=== PATIENT | male | born 1975 | race Caucasian/White ===

== ENCOUNTER 2023-09-05 01:10 | Inpatient (IN) | payer OTHER ==
[~2023-09-05] VITALS: Ht 172.7 cm; Wt 77.7 kg
[2023-09-05] VITALS (26 sets, daily range): BP systolic 117–159; BP diastolic 60–91
[2023-09-05] MEDS ORDERED: Ceftriaxone Sodium 1 GM/10 ML SYR IV ONE (01:15)
[2023-09-05] MEDS ORDERED: SODIUM CHLORIDE 0.9% 1,000 ML IV SCH (01:15)
[2023-09-05 02:17] LABS: MEAN CELL VOLUME 93.6 fl (80.0-94.0); MEAN CORPUSCULAR HGB 29.4 pg (27.0-31.0); MEAN CORPUSCULAR HGB CONC 31.4 g/dl (33.0-37.0); MEAN PLATELET VOLUME 11.2 fl (9.6-12.3); PLATELET COUNT AUTOMATED 413 10*3/uL (130-400); RED BLOOD COUNT 2.35 10*6/uL (4.50-5.90); RED CELL DISTRI WIDTH 18.2 % (0-14.5); WHITE BLOOD COUNT 12.1 10*3/uL (4.8-10.8)
[2023-09-05 02:17] LABS: ABG BASE EXCESS 9.4 mmol/L (-2.0-2.0); ARTERIAL BLOOD GAS PH 7.481 (7.35-7.45)
[2023-09-05 02:21] LABS: MANUAL DIFF REFLEX YES
[2023-09-05] MEDS ORDERED: AMLODIPINE BESY10 MG PEG (02:23)
[2023-09-05] MEDS ORDERED: ASPIRIN CHEWABL81 MG PEG (02:23)
[2023-09-05] MEDS ORDERED: ATORVALIQ20 MG/5 ML PEG (02:24)
[2023-09-05] MEDS ORDERED: BUMETANIDE0.5 MG PEG (02:24)
[2023-09-05] MEDS ORDERED: GOOD SENSE ACID20 MG PEG (02:25)
[2023-09-05] MEDS ORDERED: COREG25 MG PEG (02:25)
[2023-09-05] MEDS ORDERED: GLYCOPYRROL PEG (02:26)
[2023-09-05 02:27] LABS: ACT PARTIAL THROMBO TIME 26.9 SECONDS (20.0-32.1)
[2023-09-05] MEDS ORDERED: DAILY VITE1 EACH PEG (02:27)
[2023-09-05] MEDS ORDERED: MACROBID100 M1 PEG (02:27)
[2023-09-05] MEDS ORDERED: KEPPRA1000 MG PEG (02:27)
[2023-09-05] MEDS ORDERED: PLAVIX75 M1 PEG (02:28)
[2023-09-05] MEDS ORDERED: VALPROIC ACI50 MG/ML PEG (02:28)
[2023-09-05] MEDS ORDERED: BISACODYL10 MG R (02:30)
[2023-09-05] MEDS ORDERED: CHLORHEXIDINE473 M1 PO (02:30)
[2023-09-05] MEDS ORDERED: COLACE100 MG PEG (02:31)
[2023-09-05] MEDS ORDERED: MILK OF MA400 MG/53 PEG (02:32)
[2023-09-05] MEDS ORDERED: Ipratropium Brom3 ML INH (02:32)
[2023-09-05] MEDS ORDERED: MIRALAX17 GM PEG (02:33)
[2023-09-05 02:41] LABS: MICROCYTOSIS SLIGHT; PLATELET SUFFICIENCY NORMAL (NORMAL); TOTAL CELLS COUNTED 100 #CELLS
[2023-09-05 02:44] LABS: ALKALINE PHOSPHATASE 316 U/L (46-116); BUN 67 mg/dl (9-23); CHLORIDE 101 mmol/L (98-107); POTASSIUM 3.8 mmol/L (3.4-5.1); SGPT/ALT 169 U/L (5-49); TOTAL PROTEIN 6.5 gm/dL (6.0-8.0)
[2023-09-05] MEDS ORDERED: AZITHROMYCIN 250 MG TAB PO ONE (02:45)
[2023-09-05] MEDS ORDERED: Pantoprazole Sodium 40 MG in SODIUM CHLORIDE 0.9% 50 ML IV SCH ×2 (02:50→07:30)
[2023-09-05] MEDS ORDERED: Pantoprazole Sodium 80 MG,IV 1 EA in SYRINGE INFUSION 20 ML IV ONE (02:50)
[2023-09-05] MEDS ORDERED: AZITHROMYCIN 250 ML IV ONE (02:55)
[2023-09-05] MEDS ORDERED: PANTOPRAZOLE IV ONE (03:33)
[2023-09-05] MEDS ORDERED: SODIUM CHLORIDE 0.9% 50 ML IV ONE (03:34)
[2023-09-05 04:09] LABS: BILIRUBIN Negative (Negative); BLOOD 3+ (Negative); CLARITY Cloudy (Clear); COLOR Yellow (Yellow); GLUCOSE 1+ (Negative); KETONE Negative (Negative); LEUKO ESTERASE 3+ (Negative); NITRITE Positive (Negative); SPECIFIC GRAVITY 1.015 (1.001-1.030)
[2023-09-05 04:31] LABS: PH >= 9.0 (4.5-8.0); TRIP PHOS CRYSTALS 4+
[2023-09-05 04:32] LABS: RBC 41-50 rbc/hpf (0-2); WBC 21-30 wbc/hpf (0-5)
[2023-09-05 04:33] LABS: BACTERIA 1+
[2023-09-05] MEDS ORDERED: SODIUM CHLORIDE 0.9% 500 ML IV ONE ×2 (05:18→11:02)
[2023-09-05] MEDS ORDERED: Ondansetron Hydrochloride 4 MG/2 ML VIAL IV PRN (08:10)
[2023-09-05] MEDS ORDERED: TEMAZEPAM 15 MG CAP PO PRN (08:10)
[2023-09-05] MEDS ORDERED: Magnesium Hydroxide 30 ML UDC PO PRN (08:10)
[2023-09-05] MEDS ORDERED: ACETAMINOPHEN 650 MG SUPP R PRN (08:10)
[2023-09-05] MEDS ORDERED: ACETAMINOPHEN 325 MG TAB PO PRN (08:10)
[2023-09-05] MEDS ORDERED: BISACODYL 10 MG SUPP R PRN (08:10)
[2023-09-05] MEDS ORDERED: BISACODYL 5 MG TAB PO PRN (08:10)
[2023-09-05] MEDS ORDERED: ACETAMINOPHEN 325 MG TAB PEG PRN (09:37)
[2023-09-05] MEDS ORDERED: Magnesium Hydroxide 30 ML UDC PEG PRN (09:37)
[2023-09-05] MEDS ORDERED: Enoxaparin Sodium 40 MG/0.4 ML SYR SC SCH (10:00)
[2023-09-05] MEDS ORDERED: Ceftriaxone Sodium 1 GM in SYRINGE INFUSION 10 ML IV SCH (22:00)
[2023-09-06] VITALS: BP 146/84
[2023-09-06 04:00] VITALS: BP 152/81
[2023-09-06 05:46] LABS: ALKALINE PHOSPHATASE 295 U/L (46-116); CHLORIDE 106 mmol/L (98-107); CHOLESTEROL 134 mg/dL (<200); FREE T4 1.64 ng/dl (0.89-1.76); POTASSIUM 3.8 mmol/L (3.4-5.1); SGPT/ALT 144 U/L (5-49); TOTAL PROTEIN 6.6 gm/dL (6.0-8.0); TRIGLYCERIDES 200 mg/dl (<150)
[2023-09-06] MEDS ORDERED: Pantoprazole Sodium 40 MG TAB PO SCH (06:00)
[2023-09-06] MEDS ORDERED: AZITHROMYCIN 250 ML IV SCH (06:00)
[2023-09-06] MEDS ORDERED: Pantoprazole Sodium 40 MG VIAL IV SCH (06:00)
[2023-09-06 06:14] LABS: BUN 49 mg/dl (9-23); LDL CHOLESTEROL 85 mg/dL (9-159)
[2023-09-06 06:26] LABS: ACT PARTIAL THROMBO TIME 27.2 SECONDS (20.0-32.1)
[2023-09-06 06:29] LABS: BASO % 0.3 % (0.0-1.0); EOS # 0.4 10*3/uL (0.0-0.4); EOS % 2.8 % (1.0-4.0); HEMATOCRIT 29.2 % (42.0-52.0); LYMPH # 1.1 10*3/uL (1.3-4.4); LYMPH % 8.6 % (27.0-41.0); MEAN CELL VOLUME 93.3 fl (80.0-94.0); MEAN CORPUSCULAR HGB 29.4 pg (27.0-31.0); MEAN CORPUSCULAR HGB CONC 31.5 g/dl (33.0-37.0); MEAN PLATELET VOLUME 11.2 fl (9.6-12.3); MONO # 1.3 10*3/uL (0.1-1.0); NEUT # 10.3 10*3/uL (2.3-7.9); NEUT % 77.5 % (47.0-73.0); PLATELET COUNT AUTOMATED 468 10*3/uL (130-400); RED BLOOD COUNT 3.13 10*6/uL (4.50-5.90); RED CELL DISTRI WIDTH 17.8 % (0-14.5); WHITE BLOOD COUNT 13.3 10*3/uL (4.8-10.8)
[2023-09-06 08:00] VITALS: BP 140/94; BP 150/91
[2023-09-06 12:00] VITALS: BP 143/89
[2023-09-06] MEDS ORDERED: VANCOMYCIN/WATER FOR INJ (PEG) 250 ML IV SCH (14:00)
[2023-09-06 17:00] VITALS: BP 137/81
[2023-09-06] MEDS ORDERED: FOAM BANDAGE 5X5 T ONE (18:00)
[2023-09-06] MEDS ORDERED: LEPTOSPERMUM HONEY 4 X 5 INCH WOUND DRESSING T ONE (18:01)
[2023-09-06] MEDS ORDERED: HEEL PROTECTOR DEVICE ONE (18:01)
[2023-09-06] MEDS ORDERED: Polyethylene Glycol 3350 17 GM PACKET PEG PRN (18:05)
[2023-09-06 20:00] VITALS: BP 116/65
[2023-09-06] MEDS ORDERED: ATORVASTATIN CALCIUM 20 MG TAB PEG SCH (22:00)
[2023-09-06] MEDS ORDERED: LEVETIRACETAM 500 MG/5 ML UDC PEG SCH (22:00)
[2023-09-06] MEDS ORDERED: GLYCOPYRROLATE 1 MG TAB PEG SCH (22:00)
[2023-09-06] MEDS ORDERED: VALPROIC ACID 250 MG/5 ML UDC PEG SCH (22:00)
[2023-09-06] MEDS ORDERED: Clopidogrel Hydrogen Sulfate 75 MG TAB PEG SCH (22:00)
[2023-09-06] MEDS ORDERED: AQUAPHOR OINTMENT Base 50 GM TUBE T SCH (22:00)
[2023-09-06] MEDS ORDERED: CARVEDILOL 25 MG TAB PEG SCH (22:00)
[2023-09-06] MEDS ORDERED: FAMOTIDINE 20 MG TAB PEG SCH (22:00)
[2023-09-07] VITALS: BP 99/58
[2023-09-07 04:00] VITALS: BP 102/68
[2023-09-07 05:58] LABS: ALKALINE PHOSPHATASE 228 U/L (46-116); BUN 51 mg/dl (9-23); CHLORIDE 109 mmol/L (98-107); POTASSIUM 3.5 mmol/L (3.4-5.1); SGPT/ALT 107 U/L (5-49); TOTAL PROTEIN 5.8 gm/dL (6.0-8.0)
[2023-09-07 06:17] LABS: BASO % 0.2 % (0.0-1.0); EOS # 0.4 10*3/uL (0.0-0.4); EOS % 2.8 % (1.0-4.0); HEMATOCRIT 25.8 % (42.0-52.0); LYMPH # 1.5 10*3/uL (1.3-4.4); LYMPH % 11.8 % (27.0-41.0); MEAN CELL VOLUME 96.3 fl (80.0-94.0); MEAN CORPUSCULAR HGB 29.9 pg (27.0-31.0); MEAN PLATELET VOLUME 11.7 fl (9.6-12.3); MONO # 0.9 10*3/uL (0.1-1.0); MONO % 6.7 % (3.0-9.0); NEUT # 9.9 10*3/uL (2.3-7.9); NEUT % 77.6 % (47.0-73.0); PLATELET COUNT AUTOMATED 383 10*3/uL (130-400); RED BLOOD COUNT 2.68 10*6/uL (4.50-5.90); RED CELL DISTRI WIDTH 17.7 % (0-14.5); WHITE BLOOD COUNT 12.8 10*3/uL (4.8-10.8)
[2023-09-07 07:38] LABS: ABG BASE EXCESS 4.9 mmol/L (-2.0-2.0); ARTERIAL BLOOD GAS PH 7.485 (7.35-7.45)
[2023-09-07 08:00] VITALS: BP 111/74
[2023-09-07] MEDS ORDERED: ASPIRIN, CHEWABLE 81 MG TAB PEG SCH (10:00)
[2023-09-07] MEDS ORDERED: Chlorhexidine Gluconate 15 ML MOUTHWASH T SCH (10:00)
[2023-09-07] MEDS ORDERED: MULTIVITAMIN 1 TAB TAB PO SCH (10:00)
[2023-09-07] MEDS ORDERED: amLODIPine besylate 10 MG TAB PEG SCH (10:00)
[2023-09-07] MEDS ORDERED: DOCUSATE SODIUM 100 MG/10 ML UDC PO SCH (10:00)
[2023-09-07 12:00] VITALS: BP 131/67
[2023-09-07] MEDS ORDERED: FERROUS SULFATE 325 MG TAB PO SCH (14:20)
[2023-09-07] MEDS ORDERED: Vancomycin Hydrochloride 1,000 MG in SODIUM CHLORIDE 0.9% 250 ML IV SCH (15:00)
[2023-09-07 16:00] VITALS: BP 155/85
[2023-09-07 20:00] VITALS: BP 136/87
[2023-09-07] MEDS ORDERED: LEVETIRACETAM 500 MG/5 ML UDC PEG SCH (22:00)
[2023-09-08] VITALS: BP 121/65
[2023-09-08 04:00] VITALS: BP 120/71
[2023-09-08 04:35] LABS: BASO % 0.2 % (0.0-1.0); EOS # 0.4 10*3/uL (0.0-0.4); EOS % 3.3 % (1.0-4.0); HEMATOCRIT 27.7 % (42.0-52.0); LYMPH # 1.2 10*3/uL (1.3-4.4); LYMPH % 10.7 % (27.0-41.0); MEAN CELL VOLUME 93.3 fl (80.0-94.0); MEAN CORPUSCULAR HGB 29.6 pg (27.0-31.0); MEAN CORPUSCULAR HGB CONC 31.8 g/dl (33.0-37.0); MEAN PLATELET VOLUME 11.4 fl (9.6-12.3); MONO # 0.9 10*3/uL (0.1-1.0); NEUT # 8.6 10*3/uL (2.3-7.9); NEUT % 77.3 % (47.0-73.0); PLATELET COUNT AUTOMATED 370 10*3/uL (130-400); RED BLOOD COUNT 2.97 10*6/uL (4.50-5.90); RED CELL DISTRI WIDTH 17.4 % (0-14.5); WHITE BLOOD COUNT 11.1 10*3/uL (4.8-10.8)
[2023-09-08 04:57] LABS: ALKALINE PHOSPHATASE 206 U/L (46-116); CHLORIDE 109 mmol/L (98-107); POTASSIUM 3.5 mmol/L (3.4-5.1); SGPT/ALT 89 U/L (5-49); TOTAL PROTEIN 5.9 gm/dL (6.0-8.0)
[2023-09-08 04:58] LABS: BUN 35 mg/dl (9-23)
[2023-09-08 07:57] VITALS: BP 108/74
[2023-09-08] MEDS ORDERED: LORazepam 2 MG/ML VIAL IV ONE ×2 (10:45→15:50)
[2023-09-08 12:00] VITALS: BP 140/85
[2023-09-08] MEDS ORDERED: GADOTERATE MEGLUMINE 10 MMOL/20 ML VIAL IV ONE (14:49)
[2023-09-08 16:00] VITALS: BP 166/99
[2023-09-08] MEDS ORDERED: LEVETIRACE500 MG/5 M PEG (16:16)
[2023-09-08] MEDS ORDERED: DEPAKENE S250 MG/5 M PEG (16:16)
[2023-09-08] MEDS ORDERED: MASON NATURAL325 MG PO (16:16)
[2023-09-08] MEDS ORDERED: PREMIERPRO RX ME1 GM IV (16:16)
[2023-09-08] MEDS ORDERED: Meropenem 1 GM in SODIUM CHLORIDE 0.9% 100 ML IV SCH (22:00)
== END 2023-09-08 18:30 | disposition short-term general hospital (02) | DRG 871 ==
LOC: ED 01:10 → EDHOLD 07:44 → ICCU 07:44
PROVIDERS: Internal Medicine; Student in an Organized Health Care Education/Training Program; ADMIT Family Medicine; ATTEND Family Medicine
PROC: B54NZZA Ultrasonography of Left Upper Extremity Veins, Guidance (ICD-10-PCS; 2023-09-05)
PROC: B54BZZA Ultrasonography of Right Lower Extremity Veins, Guidance (ICD-10-PCS; 2023-09-05)
PROC: 30233N1 Transfusion of Nonautologous Red Blood Cells into Peripheral Vein, Percutaneous Approach (ICD-10-PCS; 2023-09-05)
PROC: 06HY33Z Insertion of Infusion Device into Lower Vein, Percutaneous Approach (ICD-10-PCS; principal; 2023-09-07)
PROC: 05HC33Z Insertion of Infusion Device into Left Basilic Vein, Percutaneous Approach (ICD-10-PCS; 2023-09-07)
DX: A41.9 Sepsis, unspecified organism (principal); J69.0 Pneumonitis due to inhalation of food and vomit; L89.894 Pressure ulcer of other site, stage 4; J96.21 Acute and chronic respiratory failure with hypoxia; N30.01 Acute cystitis with hematuria; K92.2 Gastrointestinal hemorrhage, unspecified; N17.9 Acute kidney failure, unspecified; G93.1 Anoxic brain damage, not elsewhere classified; Z66 Do not resuscitate; I25.10 Atherosclerotic heart disease of native coronary artery without angina pectoris; Z93.0 Tracheostomy status; Z51.5 Encounter for palliative care; E88.09 Other disorders of plasma-protein metabolism, not elsewhere classified; R73.9 Hyperglycemia, unspecified; R74.01 Elevation of levels of liver transaminase levels; D63.8 Anemia in other chronic diseases classified elsewhere; R56.9 Unspecified convulsions; L89.892 Pressure ulcer of other site, stage 2; L89.626 Pressure-induced deep tissue damage of left heel; Z83.3 Family history of diabetes mellitus; Z82.49 Family history of ischemic heart disease and other diseases of the circulatory system; Z88.0 Allergy status to penicillin; Z91.013 Allergy to seafood; Z88.5 Allergy status to narcotic agent; Z79.82 Long term (current) use of aspirin; Z79.899 Other long term (current) drug therapy

== ENCOUNTER 2023-12-23 14:10 | Inpatient (IN) | payer OTHER ==
[~2023-12-23] VITALS: Ht 167.6 cm; Wt 70.3 kg
[~2023-12-23 14:10] MED LIST: AMLODIPINE BESY10 MG PEG; AMLODIPINE BESYL5 MG PEG; ASPIRIN CHEWABL81 MG PEG; ATORVALIQ20 MG/5 ML PEG; BISACODYL10 MG R; BUMETANIDE0.5 MG PEG; CEFEPIME2 GM/100 M IV; CHLORHEXIDINE473 M1 PO; COLACE100 MG PEG; COREG25 MG PEG; DAILY VITE1 EACH PEG; DEPAKENE S250 MG/5 M PEG; FERROUS SU220 MG/52 PEG; FLEET ENEMA EX230 M1 R; GLYCOPYRROL PEG; GOOD SENSE ACID20 MG PEG; Ipratropium Brom3 ML INH; KEPPRA1000 MG PEG; LEVETIRACE500 MG/5 M PEG; MACROBID100 M1 PEG; MASON NATURAL325 MG PO; MILK OF MA400 MG/53 PEG; MIRALAX17 GM PEG; PLAVIX75 M1 PEG; PREMIERPRO RX ME1 GM IV; VALPROIC A500 MG/10 PEG; VALPROIC ACI50 MG/ML PEG
[2023-12-23 14:16] VITALS: BP 126/84
[2023-12-23] MEDS ORDERED: SODIUM CHLORIDE 0.9% 1,000 ML IV ONE ×3 (14:25)
[2023-12-23 14:51] LABS: BASO % 0.5 % (0.0-1.0); EOS # 0.9 10*3/uL (0.0-0.4); HEMATOCRIT 32.3 % (42.0-52.0); MEAN CELL VOLUME 101.3 fl (80.0-94.0); MEAN CORPUSCULAR HGB 32.6 pg (27.0-31.0); MEAN CORPUSCULAR HGB CONC 32.2 g/dl (33.0-37.0); MEAN PLATELET VOLUME 10.3 fl (9.6-12.3); MONO # 0.8 10*3/uL (0.1-1.0); MONO % 9.2 % (3.0-9.0); NEUT # 5.4 10*3/uL (2.3-7.9); NEUT % 62.3 % (47.0-73.0); PLATELET COUNT AUTOMATED 218 10*3/uL (130-400); RED BLOOD COUNT 3.19 10*6/uL (4.50-5.90); RED CELL DISTRI WIDTH 13.3 % (0-14.5); WHITE BLOOD COUNT 8.7 10*3/uL (4.8-10.8)
[2023-12-23 15:02] LABS: BILIRUBIN Negative (Negative); BLOOD 1+ (Negative); CLARITY Turbid (Clear); COLOR Yellow (Yellow); GLUCOSE Negative (Negative); KETONE Negative (Negative); LEUKO ESTERASE 3+ (Negative); NITRITE Negative (Negative); PH 7.5 (4.5-8.0)
[2023-12-23 15:09] LABS: BACTERIA 2+; WBC TNTC wbc/hpf (0-5)
[2023-12-23 15:12] LABS: BUN 32 mg/dl (9-23); CHLORIDE 97 mmol/L (98-107); POTASSIUM 3.5 mmol/L (3.4-5.1)
[2023-12-23] MEDS ORDERED: AZITHROMYCIN 250 ML IV ONE (15:30)
[2023-12-23] MEDS ORDERED: Ceftriaxone Sodium 1 GM/10 ML SYR IV ONE (15:30)
[2023-12-23 16:08] LABS: ABG O2 SATURATION 96.1 % (94.0-98.0); ARTERIAL BLOOD GAS PH 7.497 (7.350-7.450); ARTERIAL BLOOD GAS PO2 76.2 mmHg (83.0-108.0)
[2023-12-23 16:10] LABS: ABG BASE EXCESS 9.4 mmol/L (-2.0-3.0)
[2023-12-23] MEDS ORDERED: BUMETANIDE1 MG PEG (16:16)
[2023-12-23] MEDS ORDERED: KEPPRA1000 MG PEG ×2 (16:18→16:19)
[2023-12-23 18:00] VITALS: BP 150/95
[2023-12-23] MEDS ORDERED: CEFEPIME HCL IN DEXTROSE 5 % 50 ML IV SCH (18:00)
[2023-12-23 20:00] VITALS: BP 109/50
[2023-12-23] MEDS ORDERED: DEPAKENE S250 MG/5 M PEG (23:39)
[2023-12-24] VITALS: BP 136/39; BP 138/87
[2023-12-24] MEDS ORDERED: FOAM BANDAGE 1 EACH BANDAGE T ONE (05:22)
[2023-12-24] MEDS ORDERED: ADHESIVE BANDAGE 1 EACH BANDAGE T ONE (05:26)
[2023-12-24] MEDS ORDERED: VALPROIC ACID 250 MG/5 ML UDC PEG SCH (06:00)
[2023-12-24 08:00] VITALS: BP 154/86
[2023-12-24 08:12] LABS: BASO % 0.4 % (0.0-1.0); EOS # 0.7 10*3/uL (0.0-0.4); EOS % 8.2 % (1.0-4.0); HEMATOCRIT 30.3 % (42.0-52.0); MEAN CORPUSCULAR HGB 32.7 pg (27.0-31.0); MEAN PLATELET VOLUME 10.3 fl (9.6-12.3); MONO # 0.8 10*3/uL (0.1-1.0); MONO % 9.2 % (3.0-9.0); NEUT # 6.1 10*3/uL (2.3-7.9); PLATELET COUNT AUTOMATED 192 10*3/uL (130-400); RED BLOOD COUNT 2.97 10*6/uL (4.50-5.90); RED CELL DISTRI WIDTH 13.3 % (0-14.5); WHITE BLOOD COUNT 9.1 10*3/uL (4.8-10.8)
[2023-12-24] MEDS ORDERED: LEVETIRACETAM 500 MG TAB PO SCH (09:00)
[2023-12-24 09:05] LABS: ALKALINE PHOSPHATASE 91 U/L (46-116); BUN 27 mg/dl (9-23); CHLORIDE 101 mmol/L (98-107); POTASSIUM 3.3 mmol/L (3.4-5.1); TOTAL PROTEIN 6.6 gm/dL (6.0-8.0)
[2023-12-24 09:06] LABS: SGPT/ALT < 7 U/L (5-49)
[2023-12-24] MEDS ORDERED: BUMETANIDE 1 MG TAB PEG SCH (10:00)
[2023-12-24] MEDS ORDERED: Enoxaparin Sodium 40 MG/0.4 ML SYR SC SCH (10:00)
[2023-12-24] MEDS ORDERED: Albuterol Sulf/Ipratropium 3 ML VIAL NEB SCH (10:00)
[2023-12-24] MEDS ORDERED: ASPIRIN, CHEWABLE 81 MG TAB PEG SCH (10:00)
[2023-12-24 12:00] VITALS: BP 155/96
[2023-12-24] MEDS ORDERED: CEFEPIME HCL IN DEXTROSE 5 % 50 ML IV SCH (12:00)
[2023-12-24 16:00] VITALS: BP 141/90
[2023-12-24] MEDS ORDERED: FOAM BANDAGE HEEL T ONE (19:44)
[2023-12-24 20:00] VITALS: BP 128/67
[2023-12-24] MEDS ORDERED: LEVETIRACETAM 500 MG/5 ML UDC PO SCH (22:00)
[2023-12-24] MEDS ORDERED: Clopidogrel Hydrogen Sulfate 75 MG TAB PEG SCH (22:00)
[2023-12-25] VITALS (7 sets, daily range): BP systolic 87–182; BP diastolic 48–115
[2023-12-25 06:29] LABS: BASO # 0.1 10*3/uL (0.0-0.1); BASO % 0.7 % (0.0-1.0); EOS # 0.9 10*3/uL (0.0-0.4); EOS % 12.7 % (1.0-4.0); HEMATOCRIT 32.8 % (42.0-52.0); MEAN CELL VOLUME 101.5 fl (80.0-94.0); MEAN CORPUSCULAR HGB 32.8 pg (27.0-31.0); MEAN CORPUSCULAR HGB CONC 32.3 g/dl (33.0-37.0); MEAN PLATELET VOLUME 10.9 fl (9.6-12.3); MONO # 0.6 10*3/uL (0.1-1.0); MONO % 8.7 % (3.0-9.0); NEUT # 4.2 10*3/uL (2.3-7.9); NEUT % 61.9 % (47.0-73.0); PLATELET COUNT AUTOMATED 201 10*3/uL (130-400); RED BLOOD COUNT 3.23 10*6/uL (4.50-5.90); RED CELL DISTRI WIDTH 13.3 % (0-14.5); WHITE BLOOD COUNT 6.8 10*3/uL (4.8-10.8)
[2023-12-25 06:37] LABS: BUN 24 mg/dl (9-23); CHLORIDE 101 mmol/L (98-107); POTASSIUM 3.4 mmol/L (3.4-5.1)
[2023-12-25] MEDS ORDERED: Albuterol Sulf/Ipratropium 3 ML VIAL NEB ONE (12:55)
[2023-12-25] MEDS ORDERED: Midazolam Hydrochloride 2 MG/2 ML VIAL ONE (13:02)
[2023-12-25] MEDS ORDERED: LISINOPRIL 10 MG TAB PEG SCH (17:35)
[2023-12-26 03:50] VITALS: BP 139/96
[2023-12-26 06:13] LABS: BASO % 0.3 % (0.0-1.0); BUN 26 mg/dl (9-23); CHLORIDE 98 mmol/L (98-107); EOS # 0.6 10*3/uL (0.0-0.4); EOS % 4.8 % (1.0-4.0); HEMATOCRIT 32.5 % (42.0-52.0); MEAN CORPUSCULAR HGB 32.9 pg (27.0-31.0); MEAN CORPUSCULAR HGB CONC 32.9 g/dl (33.0-37.0); MEAN PLATELET VOLUME 11.1 fl (9.6-12.3); MONO # 1.1 10*3/uL (0.1-1.0); MONO % 9.2 % (3.0-9.0); NEUT # 9.1 10*3/uL (2.3-7.9); PLATELET COUNT AUTOMATED 214 10*3/uL (130-400); POTASSIUM 3.5 mmol/L (3.4-5.1); RED BLOOD COUNT 3.25 10*6/uL (4.50-5.90); RED CELL DISTRI WIDTH 13.3 % (0-14.5); WHITE BLOOD COUNT 11.8 10*3/uL (4.8-10.8)
[2023-12-26 08:00] VITALS: BP 126/62
[2023-12-26 12:00] VITALS: BP 103/66
[2023-12-26] MEDS ORDERED: AMLODIPINE BESYL5 MG PO (13:36)
[2023-12-26 16:00] VITALS: BP 105/72
[2023-12-26 20:00] VITALS: BP 95/72
[2023-12-27] VITALS: BP 99/67
[2023-12-27 04:59] LABS: BUN 23 mg/dl (9-23); CHLORIDE 98 mmol/L (98-107); POTASSIUM 4.4 mmol/L (3.4-5.1)
[2023-12-27 06:16] LABS: BASO % 0.5 % (0.0-1.0); EOS # 0.8 10*3/uL (0.0-0.4); EOS % 10.7 % (1.0-4.0); HEMATOCRIT 34.3 % (42.0-52.0); MEAN CORPUSCULAR HGB 32.7 pg (27.0-31.0); MEAN CORPUSCULAR HGB CONC 31.2 g/dl (33.0-37.0); MEAN PLATELET VOLUME 11.3 fl (9.6-12.3); MONO % 12.1 % (3.0-9.0); NEUT # 4.6 10*3/uL (2.3-7.9); NEUT % 58.5 % (47.0-73.0); PLATELET COUNT AUTOMATED 170 10*3/uL (130-400); RED BLOOD COUNT 3.27 10*6/uL (4.50-5.90); RED CELL DISTRI WIDTH 13.4 % (0-14.5); WHITE BLOOD COUNT 7.8 10*3/uL (4.8-10.8)
[2023-12-27 06:49] LABS: MEAN CELL VOLUME 104.9 fl (80.0-94.0)
[2023-12-27 08:00] VITALS: BP 120/73
[2023-12-27 12:00] VITALS: BP 105/68
[2023-12-27 16:00] VITALS: BP 93/75
[2023-12-27 20:00] VITALS: BP 99/55
[2023-12-28] VITALS: BP 104/63
[2023-12-28 06:28] LABS: BUN 28 mg/dl (9-23); CHLORIDE 97 mmol/L (98-107); POTASSIUM 4.1 mmol/L (3.4-5.1)
[2023-12-28 06:54] LABS: BASO % 0.6 % (0.0-1.0); EOS # 0.8 10*3/uL (0.0-0.4); HEMATOCRIT 32.1 % (42.0-52.0); MEAN CELL VOLUME 102.6 fl (80.0-94.0); MEAN CORPUSCULAR HGB 33.2 pg (27.0-31.0); MEAN CORPUSCULAR HGB CONC 32.4 g/dl (33.0-37.0); MEAN PLATELET VOLUME 11.2 fl (9.6-12.3); MONO # 0.6 10*3/uL (0.1-1.0); MONO % 9.5 % (3.0-9.0); NEUT # 3.8 10*3/uL (2.3-7.9); NEUT % 58.5 % (47.0-73.0); PLATELET COUNT AUTOMATED 187 10*3/uL (130-400); RED BLOOD COUNT 3.13 10*6/uL (4.50-5.90); RED CELL DISTRI WIDTH 13.6 % (0-14.5); WHITE BLOOD COUNT 6.5 10*3/uL (4.8-10.8)
[2023-12-28 08:00] VITALS: BP 124/69
[2023-12-28 12:00] VITALS: BP 141/81
[2023-12-28] MEDS ORDERED: CEFEPIME HYDROCH2 GM IV (15:09)
[2023-12-28] MEDS ORDERED: TOBRAMYCIN IV (15:09)
[2023-12-28 16:00] VITALS: BP 96/68
[2023-12-28 20:00] VITALS: BP 128/69
[2023-12-29] VITALS: BP 108/65
[2023-12-29 05:16] LABS: BUN 32 mg/dl (9-23); CHLORIDE 99 mmol/L (98-107); POTASSIUM 3.6 mmol/L (3.4-5.1); TOBRAMYCIN TROUGH 1.4 ug/mL (0-2.0)
[2023-12-29 06:11] LABS: BASO # 0.1 10*3/uL (0.0-0.1); BASO % 0.7 % (0.0-1.0); EOS # 0.8 10*3/uL (0.0-0.4); EOS % 11.1 % (1.0-4.0); HEMATOCRIT 31.2 % (42.0-52.0); MEAN CELL VOLUME 102.3 fl (80.0-94.0); MEAN CORPUSCULAR HGB 32.8 pg (27.0-31.0); MEAN CORPUSCULAR HGB CONC 32.1 g/dl (33.0-37.0); MEAN PLATELET VOLUME 11.4 fl (9.6-12.3); MONO # 0.7 10*3/uL (0.1-1.0); NEUT # 4.7 10*3/uL (2.3-7.9); NEUT % 63.7 % (47.0-73.0); PLATELET COUNT AUTOMATED 180 10*3/uL (130-400); RED BLOOD COUNT 3.05 10*6/uL (4.50-5.90); RED CELL DISTRI WIDTH 13.4 % (0-14.5); WHITE BLOOD COUNT 7.3 10*3/uL (4.8-10.8)
[2023-12-29 08:00] VITALS: BP 114/70
[2023-12-29 12:00] VITALS: BP 165/97
[2023-12-29] MEDS ORDERED: ACETAMINOPHEN 500 MG TAB PEG ONE (12:20)
[2023-12-29] MEDS ORDERED: Lidocaine Hydrochloride 5 ML AMP IJ ONE (12:35)
[2023-12-29] MEDS ORDERED: IOHEXOL 240 MG/ML 10 ML SOL IJ ONE (12:35)
[2023-12-29] MEDS ORDERED: SODIUM BICARBONATE 4.2% 5 ML VIAL IJ ONE (12:35)
[2023-12-29] MEDS ORDERED: Lidocaine Hydrochloride 5 ML AMP ONE (12:56)
[2023-12-29] MEDS ORDERED: IOHEXOL 240 MG/ML 10 ML SOL ONE (12:56)
[2023-12-29] MEDS ORDERED: SODIUM BICARBONATE 4.2% 5 ML VIAL ONE (12:56)
[2023-12-29] MEDS ORDERED: CEFEPIME2 GM/100 M IV (13:25)
[2023-12-29] MEDS ORDERED: TOBRAMYCIN IV (13:25)
== END 2023-12-29 17:30 | DRG 466 ==
LOC: ED 14:10 → ICCU 15:52 → 4E 15:52 → EDHOLD 15:52 → 4E 16:37 → ICCU 12-25 10:13
PROVIDERS: Emergency Medicine; Internal Medicine Infectious Disease; Student in an Organized Health Care Education/Training Program; ADMIT Internal Medicine; ATTEND Internal Medicine
PROC: 0BC98ZZ Extirpation of Matter from Lingula Bronchus, Via Natural or Artificial Opening Endoscopic (ICD-10-PCS; principal; 2023-12-25)
PROC: 0BC48ZZ Extirpation of Matter from Right Upper Lobe Bronchus, Via Natural or Artificial Opening Endoscopic (ICD-10-PCS; 2023-12-25)
PROC: 0BC88ZZ Extirpation of Matter from Left Upper Lobe Bronchus, Via Natural or Artificial Opening Endoscopic (ICD-10-PCS; 2023-12-25)
PROC: 0BC58ZZ Extirpation of Matter from Right Middle Lobe Bronchus, Via Natural or Artificial Opening Endoscopic (ICD-10-PCS; 2023-12-25)
PROC: 0BC38ZZ Extirpation of Matter from Right Main Bronchus, Via Natural or Artificial Opening Endoscopic (ICD-10-PCS; 2023-12-25)
PROC: 0BC78ZZ Extirpation of Matter from Left Main Bronchus, Via Natural or Artificial Opening Endoscopic (ICD-10-PCS; 2023-12-25)
PROC: 0BC68ZZ Extirpation of Matter from Right Lower Lobe Bronchus, Via Natural or Artificial Opening Endoscopic (ICD-10-PCS; 2023-12-25)
PROC: 0BCB8ZZ Extirpation of Matter from Left Lower Lobe Bronchus, Via Natural or Artificial Opening Endoscopic (ICD-10-PCS; 2023-12-25)
PROC: 0BC18ZZ Extirpation of Matter from Trachea, Via Natural or Artificial Opening Endoscopic (ICD-10-PCS; 2023-12-25)
DX: T83.518A Infection and inflammatory reaction due to other urinary catheter, initial encounter (principal); J69.0 Pneumonitis due to inhalation of food and vomit; J96.21 Acute and chronic respiratory failure with hypoxia; J15.61 Pneumonia due to Acinetobacter baumannii; E43 Unspecified severe protein-calorie malnutrition; T17.590A Other foreign object in bronchus causing asphyxiation, initial encounter; G93.1 Anoxic brain damage, not elsewhere classified; A41.51 Sepsis due to Escherichia coli [E. coli]; J90 Pleural effusion, not elsewhere classified; L89.891 Pressure ulcer of other site, stage 1; Z93.0 Tracheostomy status; I25.10 Atherosclerotic heart disease of native coronary artery without angina pectoris; R53.2 Functional quadriplegia; Z66 Do not resuscitate; E87.8 Other disorders of electrolyte and fluid balance, not elsewhere classified; E83.52 Hypercalcemia; D53.9 Nutritional anemia, unspecified; I10 Essential (primary) hypertension; E78.5 Hyperlipidemia, unspecified; N39.0 Urinary tract infection, site not specified; B95.2 Enterococcus as the cause of diseases classified elsewhere; R13.19 Other dysphagia; Y83.8 Other surgical procedures as the cause of abnormal reaction of the patient, or of later complication, without mention of misadventure at the time of the procedure; W44.F9XA Other object of natural or organic material, entering into or through a natural orifice, initial encounter; J98.11 Atelectasis; B96.1 Klebsiella pneumoniae [K. pneumoniae] as the cause of diseases classified elsewhere; Z82.49 Family history of ischemic heart disease and other diseases of the circulatory system; Z83.3 Family history of diabetes mellitus; Z88.0 Allergy status to penicillin; Z88.5 Allergy status to narcotic agent; Z79.899 Other long term (current) drug therapy; Z93.1 Gastrostomy status; Z51.5 Encounter for palliative care; Z95.5 Presence of coronary angioplasty implant and graft; Z79.82 Long term (current) use of aspirin; Z79.51 Long term (current) use of inhaled steroids; Y93.89 Activity, other specified; Y92.89 Other specified places as the place of occurrence of the external cause; Y99.8 Other external cause status

== ENCOUNTER 2024-03-15 12:02 | Inpatient (IN) | payer OTHER ==
[2024-03-15] VITALS (7 sets, daily range): BP systolic 95–135; BP diastolic 60–92
[~2024-03-15] VITALS: Ht 167.6 cm; Wt 72.6 kg
[~2024-03-15 12:02] MED LIST changes: +BUMETANIDE1 MG PEG; +CEFEPIME HYDROCH2 GM IV; +TOBRAMYCIN IV
[2024-03-15] MEDS ORDERED: ACETAMINOPHEN 325 MG TAB PO ONE (12:15)
[2024-03-15] MEDS ORDERED: ACETAMINOPHEN 650 MG SUPP R ONE (12:15)
[2024-03-15 12:34] LABS: BASO % 0.1 % (0.0-1.0); EOS % 0.5 % (1.0-4.0); MEAN CELL VOLUME 101.5 fl (80.0-94.0); MEAN CORPUSCULAR HGB 32.5 pg (27.0-31.0); MEAN CORPUSCULAR HGB CONC 32.1 g/dl (33.0-37.0); MEAN PLATELET VOLUME 11.3 fl (9.6-12.3); MONO # 0.7 10*3/uL (0.1-1.0); MONO % 8.3 % (3.0-9.0); NEUT # 7.6 10*3/uL (2.3-7.9); NEUT % 88.3 % (47.0-73.0); PLATELET COUNT AUTOMATED 159 10*3/uL (130-400); RED BLOOD COUNT 3.35 10*6/uL (4.50-5.90); WHITE BLOOD COUNT 8.6 10*3/uL (4.8-10.8)
[2024-03-15 12:54] LABS: ALKALINE PHOSPHATASE 339 U/L (46-116); BUN 31 mg/dl (9-23); CHLORIDE 98 mmol/L (98-107); POTASSIUM 3.2 mmol/L (3.4-5.1); SGPT/ALT 385 U/L (5-49); TOTAL PROTEIN 7.7 gm/dL (6.0-8.0)
[2024-03-15] MEDS ORDERED: IOHEXOL 300 MG/ML 100 ML VIAL IV ONE (13:00)
[2024-03-15] MEDS ORDERED: SODIUM CHLORIDE 0.9% 1,000 ML IV SCH (13:10)
[2024-03-15] MEDS ORDERED: CEFEPIME HCL IN DEXTROSE 5 % 50 ML IV ONE (13:10)
[2024-03-15] MEDS ORDERED: Vancomycin Hydrochloride 250 ML IV ONE (13:10)
[2024-03-15 14:48] LABS: BILIRUBIN 1+ (Negative); BLOOD 2+ (Negative); CLARITY Clear (Clear); COLOR Dark Yellow (Yellow); GLUCOSE Negative (Negative); KETONE Negative (Negative); LEUKO ESTERASE 2+ (Negative); NITRITE Negative (Negative); PH 6.5 (4.5-8.0); SPECIFIC GRAVITY >= 1.030 (1.001-1.030)
[2024-03-15 15:01] LABS: BACTERIA TRACE; WBC 51-100 wbc/hpf (0-5)
[2024-03-15] MEDS ORDERED: LASIX20 MG PO (15:05)
[2024-03-15] MEDS ORDERED: [UNRECOGNIZED DRUG - OTHER] PO (15:06)
[2024-03-15] MEDS ORDERED: VALPROIC A500 MG/10 PO (15:07)
[2024-03-15] MEDS ORDERED: LIPITOR20 MG PO (15:08)
[2024-03-15] MEDS ORDERED: Ondansetron Hydrochloride 4 MG/2 ML VIAL IV PRN (16:45)
[2024-03-15] MEDS ORDERED: ACETAMINOPHEN 325 MG TAB PO PRN (16:45)
[2024-03-15] MEDS ORDERED: BISACODYL 5 MG TAB PO PRN (16:45)
[2024-03-15] MEDS ORDERED: Magnesium Hydroxide 30 ML UDC PEG PRN (16:45)
[2024-03-15] MEDS ORDERED: BISACODYL 10 MG SUPP R PRN (16:45)
[2024-03-15] MEDS ORDERED: ACETAMINOPHEN 650 MG SUPP R PRN (16:45)
[2024-03-15] MEDS ORDERED: POTASSIUM CHLORIDE 20 MEQ TAB PO ONE (17:05)
[2024-03-15] MEDS ORDERED: IBUPROFEN 400 MG TAB PEG PRN (17:05)
[2024-03-15] MEDS ORDERED: Albuterol Sulf/Ipratropium 3 ML VIAL NEB SCH (19:02)
[2024-03-15] MEDS ORDERED: IBUPROFEN 100 MG/5 ML UDC PEG PRN (19:10)
[2024-03-15] MEDS ORDERED: Clopidogrel Hydrogen Sulfate 75 MG TAB PEG SCH (22:00)
[2024-03-15] MEDS ORDERED: CEFEPIME HCL IN DEXTROSE 5 % 50 ML IV SCH (22:00)
[2024-03-15] MEDS ORDERED: LEVETIRACETAM 500 MG/5 ML UDC PEG SCH (22:00)
[2024-03-15] MEDS ORDERED: VALPROIC ACID 250 MG/5 ML UDC PEG SCH (22:00)
[2024-03-15 23:43] LABS: BUN 23 mg/dl (9-23); CHLORIDE 107 mmol/L (98-107); POTASSIUM 3.5 mmol/L (3.4-5.1)
[2024-03-16] VITALS: BP 145/70
[2024-03-16] MEDS ORDERED: VANCOMYCIN/WATER FOR INJ (PEG) 250 ML IV SCH
[2024-03-16] MEDS ORDERED: ARTIFICIAL TEAR1514 OU (01:49)
[2024-03-16 08:00] VITALS: BP 128/86
[2024-03-16 08:22] LABS: ACT PARTIAL THROMBO TIME 24.5 SECONDS (20.0-32.1)
[2024-03-16 08:40] LABS: VITAMIN D, 25-HYDROXY 65.3 ng/mL (30-100)
[2024-03-16 08:41] LABS: ALKALINE PHOSPHATASE 307 U/L (46-116); BUN 20 mg/dl (9-23); CHLORIDE 106 mmol/L (98-107); CHOLESTEROL 138 mg/dL (<200); FREE T4 1.22 ng/dl (0.89-1.76); POTASSIUM 2.9 mmol/L (3.4-5.1); SGPT/ALT 387 U/L (5-49); TOTAL PROTEIN 7.4 gm/dL (6.0-8.0); TRIGLYCERIDES 294 mg/dl (<150)
[2024-03-16 08:46] LABS: LDL CHOLESTEROL 62 mg/dL (9-159)
[2024-03-16 09:49] LABS: BASO % 0.5 % (0.0-1.0); EOS # 0.3 10*3/uL (0.0-0.4); EOS % 3.1 % (1.0-4.0); HEMATOCRIT 32.4 % (42.0-52.0); MEAN CORPUSCULAR HGB 32.7 pg (27.0-31.0); MEAN CORPUSCULAR HGB CONC 30.9 g/dl (33.0-37.0); MEAN PLATELET VOLUME 11.6 fl (9.6-12.3); MONO # 1.3 10*3/uL (0.1-1.0); MONO % 16.1 % (3.0-9.0); NEUT # 5.6 10*3/uL (2.3-7.9); NEUT % 69.8 % (47.0-73.0); PLATELET COUNT AUTOMATED 132 10*3/uL (130-400); RED BLOOD COUNT 3.06 10*6/uL (4.50-5.90); RED CELL DISTRI WIDTH 14.3 % (0-14.5)
[2024-03-16 09:50] LABS: MEAN CELL VOLUME 105.9 fl (80.0-94.0)
[2024-03-16] MEDS ORDERED: ASPIRIN, CHEWABLE 81 MG TAB PEG SCH (10:00)
[2024-03-16] MEDS ORDERED: LEVETIRACETAM 500 MG/5 ML UDC PEG SCH (10:00)
[2024-03-16] MEDS ORDERED: Enoxaparin Sodium 40 MG/0.4 ML SYR SC SCH (10:00)
[2024-03-16] MEDS ORDERED: amLODIPine besylate 5 MG TAB PO SCH (10:00)
[2024-03-16] MEDS ORDERED: ATORVASTATIN CALCIUM 20 MG TAB PO SCH (10:00)
[2024-03-16 10:07] LABS: HBsAG SCREEN Negative (Negative); HCV Ab Non Reactive (Non Reactive); HEP B CORE Ab, IgM Negative (Negative)
[2024-03-16] MEDS ORDERED: POTASSIUM CHLORIDE 20 MEQ TAB NG ONE (10:55)
[2024-03-16 12:00] VITALS: BP 130/62
[2024-03-16 12:30] VITALS: BP 130/62
[2024-03-16] MEDS ORDERED: Menthol/Zinc Oxide 4 GM THIN T PRN (14:00)
[2024-03-16 16:00] VITALS: BP 135/71
[2024-03-16 20:00] VITALS: BP 138/91
[2024-03-16] MEDS ORDERED: Menthol/Zinc Oxide 4 GM THIN T SCH (22:00)
[2024-03-17] VITALS: BP 152/82
[2024-03-17 02:06] LABS: HEMOGOLBIN A1C 4.9 % (4.8-5.6)
[2024-03-17 06:09] LABS: ALKALINE PHOSPHATASE 422 U/L (46-116); BUN 23 mg/dl (9-23); CHLORIDE 106 mmol/L (98-107); POTASSIUM 3.3 mmol/L (3.4-5.1); SGPT/ALT 308 U/L (5-49); TOTAL PROTEIN 6.6 gm/dL (6.0-8.0)
[2024-03-17 06:20] LABS: BASO % 0.4 % (0.0-1.0); EOS # 0.5 10*3/uL (0.0-0.4); EOS % 8.9 % (1.0-4.0); HEMATOCRIT 29.3 % (42.0-52.0); MEAN CELL VOLUME 104.6 fl (80.0-94.0); MEAN CORPUSCULAR HGB 32.9 pg (27.0-31.0); MEAN CORPUSCULAR HGB CONC 31.4 g/dl (33.0-37.0); MONO # 0.7 10*3/uL (0.1-1.0); MONO % 13.7 % (3.0-9.0); NEUT # 3.7 10*3/uL (2.3-7.9); NEUT % 68.1 % (47.0-73.0); PLATELET COUNT AUTOMATED 139 10*3/uL (130-400); RED CELL DISTRI WIDTH 14.3 % (0-14.5); WHITE BLOOD COUNT 5.4 10*3/uL (4.8-10.8)
[2024-03-17 08:00] VITALS: BP 126/83
[2024-03-17] MEDS ORDERED: Vancomycin Hydrochloride 750 MG in SODIUM CHLORIDE 0.9% 250 ML IV SCH (10:00)
[2024-03-17 12:00] VITALS: BP 147/93
[2024-03-17] MEDS ORDERED: POTASSIUM CHLORIDE 20 MEQ TAB PEG ONE (15:55)
[2024-03-17 17:08] VITALS: BP 135/80
[2024-03-17 20:00] VITALS: BP 134/78
[2024-03-17] MEDS ORDERED: METRONIDAZOLE 100 ML IV SCH (22:00)
[2024-03-18] VITALS: BP 112/53
[2024-03-18 06:09] LABS: BUN 22 mg/dl (9-23); CHLORIDE 105 mmol/L (98-107)
[2024-03-18 06:44] LABS: BASO % 0.6 % (0.0-1.0); EOS # 0.3 10*3/uL (0.0-0.4); HEMATOCRIT 29.2 % (42.0-52.0); MEAN CELL VOLUME 103.2 fl (80.0-94.0); MEAN CORPUSCULAR HGB 32.5 pg (27.0-31.0); MEAN CORPUSCULAR HGB CONC 31.5 g/dl (33.0-37.0); MEAN PLATELET VOLUME 11.8 fl (9.6-12.3); MONO # 0.8 10*3/uL (0.1-1.0); MONO % 15.3 % (3.0-9.0); NEUT % 60.7 % (47.0-73.0); PLATELET COUNT AUTOMATED 143 10*3/uL (130-400); RED BLOOD COUNT 2.83 10*6/uL (4.50-5.90); RED CELL DISTRI WIDTH 14.6 % (0-14.5); WHITE BLOOD COUNT 4.9 10*3/uL (4.8-10.8)
[2024-03-18 08:00] VITALS: BP 146/97
[2024-03-18 12:00] VITALS: BP 152/95
[2024-03-18 16:00] VITALS: BP 158/99
[2024-03-18 20:00] VITALS: BP 151/89
[2024-03-19] VITALS: BP 159/93
[2024-03-19] MEDS ORDERED: Vancomycin Hydrochloride 1,000 MG in SODIUM CHLORIDE 0.9% 250 ML IV SCH
[2024-03-19 06:48] LABS: BASO % 0.6 % (0.0-1.0); EOS # 0.3 10*3/uL (0.0-0.4); EOS % 6.5 % (1.0-4.0); HEMATOCRIT 32.1 % (42.0-52.0); MEAN CELL VOLUME 100.6 fl (80.0-94.0); MEAN CORPUSCULAR HGB 32.6 pg (27.0-31.0); MEAN CORPUSCULAR HGB CONC 32.4 g/dl (33.0-37.0); MEAN PLATELET VOLUME 11.5 fl (9.6-12.3); MONO # 0.7 10*3/uL (0.1-1.0); MONO % 14.5 % (3.0-9.0); NEUT # 2.9 10*3/uL (2.3-7.9); NEUT % 57.8 % (47.0-73.0); PLATELET COUNT AUTOMATED 150 10*3/uL (130-400); RED BLOOD COUNT 3.19 10*6/uL (4.50-5.90); RED CELL DISTRI WIDTH 14.6 % (0-14.5)
[2024-03-19 07:14] LABS: ALKALINE PHOSPHATASE 504 U/L (46-116); BUN 16 mg/dl (9-23); CHLORIDE 101 mmol/L (98-107); POTASSIUM 3.8 mmol/L (3.4-5.1); SGPT/ALT 175 U/L (5-49); TOTAL PROTEIN 6.9 gm/dL (6.0-8.0)
[2024-03-19 08:00] VITALS: BP 150/88
[2024-03-19 12:00] VITALS: BP 148/94
[2024-03-19] MEDS ORDERED: FOAM BANDAGE 1 EACH BANDAGE T ONE (15:59)
[2024-03-19] MEDS ORDERED: FOAM BANDAGE HEEL T ONE (15:59)
[2024-03-19 16:00] VITALS: BP 147/90
[2024-03-19 20:00] VITALS: BP 135/75; BP 150/92
[2024-03-20] VITALS: BP 152/88; BP 157/98
[2024-03-20 06:45] LABS: BASO % 0.5 % (0.0-1.0); EOS # 0.5 10*3/uL (0.0-0.4); EOS % 7.5 % (1.0-4.0); HEMATOCRIT 31.8 % (42.0-52.0); MEAN CELL VOLUME 101.3 fl (80.0-94.0); MEAN CORPUSCULAR HGB 32.5 pg (27.0-31.0); MEAN CORPUSCULAR HGB CONC 32.1 g/dl (33.0-37.0); MEAN PLATELET VOLUME 11.2 fl (9.6-12.3); MONO % 14.8 % (3.0-9.0); NEUT # 3.6 10*3/uL (2.3-7.9); NEUT % 55.4 % (47.0-73.0); PLATELET COUNT AUTOMATED 144 10*3/uL (130-400); RED BLOOD COUNT 3.14 10*6/uL (4.50-5.90); RED CELL DISTRI WIDTH 14.6 % (0-14.5); WHITE BLOOD COUNT 6.4 10*3/uL (4.8-10.8)
[2024-03-20 07:09] LABS: ALKALINE PHOSPHATASE 430 U/L (46-116); BUN 14 mg/dl (9-23); CHLORIDE 100 mmol/L (98-107); POTASSIUM 3.9 mmol/L (3.4-5.1); SGPT/ALT 125 U/L (5-49); TOTAL PROTEIN 6.3 gm/dL (6.0-8.0)
[2024-03-20 08:00] VITALS: BP 140/80
[2024-03-20 12:00] VITALS: BP 126/81
[2024-03-20 16:00] VITALS: BP 139/93
[2024-03-20 20:00] VITALS: BP 139/96
[2024-03-20] MEDS ORDERED: GENTAMICIN SULFATE IV SCH (22:00)
[2024-03-20] MEDS ORDERED: SODIUM CHLORIDE 0.9% IV SCH (22:00)
[2024-03-21] VITALS: BP 152/86; BP 161/98
[2024-03-21 05:46] LABS: ALKALINE PHOSPHATASE 376 U/L (46-116); BUN 16 mg/dl (9-23); CHLORIDE 100 mmol/L (98-107); POTASSIUM 4.1 mmol/L (3.4-5.1); SGPT/ALT 97 U/L (5-49); TOTAL PROTEIN 6.3 gm/dL (6.0-8.0)
[2024-03-21 06:39] LABS: BASO % 0.4 % (0.0-1.0); EOS # 0.6 10*3/uL (0.0-0.4); EOS % 6.5 % (1.0-4.0); MEAN CELL VOLUME 102.1 fl (80.0-94.0); MEAN CORPUSCULAR HGB 32.7 pg (27.0-31.0); MEAN CORPUSCULAR HGB CONC 32.1 g/dl (33.0-37.0); MEAN PLATELET VOLUME 11.3 fl (9.6-12.3); MONO % 11.1 % (3.0-9.0); NEUT # 5.6 10*3/uL (2.3-7.9); PLATELET COUNT AUTOMATED 172 10*3/uL (130-400); RED BLOOD COUNT 2.84 10*6/uL (4.50-5.90); RED CELL DISTRI WIDTH 14.8 % (0-14.5); WHITE BLOOD COUNT 8.9 10*3/uL (4.8-10.8)
[2024-03-21 08:51] VITALS: BP 152/98
[2024-03-21 11:45] VITALS: BP 138/85
[2024-03-21 16:00] VITALS: BP 117/79
[2024-03-21 20:00] VITALS: BP 150/92
[2024-03-22] VITALS: BP 138/88
[2024-03-22 06:24] LABS: BASO # 0.1 10*3/uL (0.0-0.1); BASO % 0.5 % (0.0-1.0); EOS # 0.7 10*3/uL (0.0-0.4); EOS % 6.2 % (1.0-4.0); MEAN CELL VOLUME 103.9 fl (80.0-94.0); MEAN CORPUSCULAR HGB 32.6 pg (27.0-31.0); MEAN CORPUSCULAR HGB CONC 31.4 g/dl (33.0-37.0); MONO # 1.2 10*3/uL (0.1-1.0); MONO % 11.4 % (3.0-9.0); NEUT # 6.9 10*3/uL (2.3-7.9); NEUT % 66.5 % (47.0-73.0); PLATELET COUNT AUTOMATED 191 10*3/uL (130-400); RED BLOOD COUNT 2.79 10*6/uL (4.50-5.90); RED CELL DISTRI WIDTH 14.9 % (0-14.5); WHITE BLOOD COUNT 10.4 10*3/uL (4.8-10.8)
[2024-03-22 06:56] LABS: ALKALINE PHOSPHATASE 326 U/L (46-116); BUN 18 mg/dl (9-23); CHLORIDE 99 mmol/L (98-107); POTASSIUM 4.3 mmol/L (3.4-5.1); SGPT/ALT 76 U/L (5-49); TOTAL PROTEIN 6.6 gm/dL (6.0-8.0)
[2024-03-22 08:00] VITALS: BP 125/80
[2024-03-22] MEDS ORDERED: SODIUM CHLORIDE 0.9% IV SCH (10:00)
[2024-03-22] MEDS ORDERED: GENTAMICIN SULFATE IV SCH (10:00)
[2024-03-22 12:00] VITALS: BP 128/87
[2024-03-22 16:00] VITALS: BP 110/68
[2024-03-22 20:00] VITALS: BP 136/77
[2024-03-23] VITALS: BP 134/83
[2024-03-23 05:45] LABS: ALKALINE PHOSPHATASE 281 U/L (46-116); BUN 16 mg/dl (9-23); CHLORIDE 100 mmol/L (98-107); POTASSIUM 4.4 mmol/L (3.4-5.1); SGPT/ALT 60 U/L (5-49); TOTAL PROTEIN 6.6 gm/dL (6.0-8.0)
[2024-03-23 06:04] LABS: BASO % 0.3 % (0.0-1.0); EOS # 0.5 10*3/uL (0.0-0.4); EOS % 5.8 % (1.0-4.0); MEAN CELL VOLUME 101.8 fl (80.0-94.0); MEAN CORPUSCULAR HGB 32.6 pg (27.0-31.0); MEAN CORPUSCULAR HGB CONC 32.1 g/dl (33.0-37.0); MEAN PLATELET VOLUME 11.1 fl (9.6-12.3); MONO % 10.9 % (3.0-9.0); NEUT # 5.4 10*3/uL (2.3-7.9); NEUT % 61.5 % (47.0-73.0); PLATELET COUNT AUTOMATED 209 10*3/uL (130-400); RED BLOOD COUNT 2.85 10*6/uL (4.50-5.90); RED CELL DISTRI WIDTH 15.1 % (0-14.5); WHITE BLOOD COUNT 8.7 10*3/uL (4.8-10.8)
[2024-03-23 08:00] VITALS: BP 134/89
[2024-03-23 12:00] VITALS: BP 132/78
[2024-03-23 16:00] VITALS: BP 122/92; BP 131/65
[2024-03-23 20:00] VITALS: BP 132/70
[2024-03-24] VITALS: BP 120/76
[2024-03-24 06:42] LABS: BASO % 0.4 % (0.0-1.0); EOS # 0.5 10*3/uL (0.0-0.4); EOS % 6.3 % (1.0-4.0); MEAN CELL VOLUME 103.8 fl (80.0-94.0); MEAN CORPUSCULAR HGB 32.7 pg (27.0-31.0); MEAN CORPUSCULAR HGB CONC 31.5 g/dl (33.0-37.0); MEAN PLATELET VOLUME 10.6 fl (9.6-12.3); MONO % 12.5 % (3.0-9.0); NEUT # 5.1 10*3/uL (2.3-7.9); NEUT % 63.5 % (47.0-73.0); PLATELET COUNT AUTOMATED 212 10*3/uL (130-400); RED CELL DISTRI WIDTH 14.9 % (0-14.5)
[2024-03-24 07:05] LABS: BUN 17 mg/dl (9-23); CHLORIDE 100 mmol/L (98-107); POTASSIUM 3.9 mmol/L (3.4-5.1)
[2024-03-24 08:00] VITALS: BP 148/87
[2024-03-24 12:00] VITALS: BP 137/82
[2024-03-24 16:00] VITALS: BP 144/91
[2024-03-24 20:00] VITALS: BP 112/75
[2024-03-24] MEDS ORDERED: VANC1PIG IV (22:20)
[2024-03-24] MEDS ORDERED: ISO GENTAM120 MG/100 IV (22:20)
[2024-03-24] MEDS ORDERED: METRONIDAZOLE500 M1 PO (22:20)
[2024-03-25] VITALS: BP 120/73
[2024-03-25 06:56] LABS: BASO % 0.3 % (0.0-1.0); EOS # 0.4 10*3/uL (0.0-0.4); EOS % 5.9 % (1.0-4.0); HEMATOCRIT 29.2 % (42.0-52.0); MEAN CELL VOLUME 104.3 fl (80.0-94.0); MEAN CORPUSCULAR HGB 32.9 pg (27.0-31.0); MEAN CORPUSCULAR HGB CONC 31.5 g/dl (33.0-37.0); MEAN PLATELET VOLUME 10.7 fl (9.6-12.3); MONO # 0.9 10*3/uL (0.1-1.0); MONO % 11.6 % (3.0-9.0); NEUT # 4.5 10*3/uL (2.3-7.9); NEUT % 61.8 % (47.0-73.0); PLATELET COUNT AUTOMATED 237 10*3/uL (130-400); RED CELL DISTRI WIDTH 14.9 % (0-14.5); WHITE BLOOD COUNT 7.3 10*3/uL (4.8-10.8)
[2024-03-25 07:25] LABS: ALKALINE PHOSPHATASE 212 U/L (46-116); BUN 17 mg/dl (9-23); CHLORIDE 101 mmol/L (98-107); POTASSIUM 4.2 mmol/L (3.4-5.1); SGPT/ALT 33 U/L (5-49); TOTAL PROTEIN 6.3 gm/dL (6.0-8.0)
[2024-03-25 08:00] VITALS: BP 122/65
[2024-03-25 12:00] VITALS: BP 119/81
[2024-03-25 16:00] VITALS: BP 120/68; BP 121/74; BP 139/84
[2024-03-25 20:00] VITALS: BP 109/71
[2024-03-26] VITALS: BP 108/75
[2024-03-26 06:10] LABS: BASO % 0.3 % (0.0-1.0); EOS # 0.4 10*3/uL (0.0-0.4); EOS % 4.8 % (1.0-4.0); HEMATOCRIT 28.6 % (42.0-52.0); MEAN CELL VOLUME 103.6 fl (80.0-94.0); MEAN CORPUSCULAR HGB CONC 31.8 g/dl (33.0-37.0); MEAN PLATELET VOLUME 10.7 fl (9.6-12.3); MONO # 1.1 10*3/uL (0.1-1.0); MONO % 12.3 % (3.0-9.0); NEUT # 5.9 10*3/uL (2.3-7.9); NEUT % 66.6 % (47.0-73.0); PLATELET COUNT AUTOMATED 271 10*3/uL (130-400); RED BLOOD COUNT 2.76 10*6/uL (4.50-5.90); RED CELL DISTRI WIDTH 15.3 % (0-14.5); WHITE BLOOD COUNT 8.9 10*3/uL (4.8-10.8)
[2024-03-26 06:34] LABS: ALKALINE PHOSPHATASE 196 U/L (46-116); BUN 18 mg/dl (9-23); CHLORIDE 101 mmol/L (98-107); POTASSIUM 4.3 mmol/L (3.4-5.1); SGPT/ALT 26 U/L (5-49); TOTAL PROTEIN 6.7 gm/dL (6.0-8.0)
[2024-03-26 08:00] VITALS: BP 137/83
[2024-03-26 12:00] VITALS: BP 150/45
[2024-03-26] MEDS ORDERED: VANC1PIG IV (15:53)
[2024-03-26] MEDS ORDERED: METRONIDAZOLE500 M1 PO (15:53)
[2024-03-26] MEDS ORDERED: ISO GENTAM120 MG/100 IV (15:53)
[2024-03-26 16:00] VITALS: BP 118/70
[2024-03-26 20:00] VITALS: BP 113/81
[2024-03-27] VITALS: BP 133/83
[2024-03-27] MEDS ORDERED: HEPARIN SODIUM 300 UNITS/3 ML SYR IV SCH (06:10)
[2024-03-27 06:36] LABS: BASO % 0.4 % (0.0-1.0); EOS # 0.4 10*3/uL (0.0-0.4); EOS % 5.2 % (1.0-4.0); HEMATOCRIT 28.1 % (42.0-52.0); MEAN CELL VOLUME 102.9 fl (80.0-94.0); MEAN CORPUSCULAR HGB 32.2 pg (27.0-31.0); MEAN CORPUSCULAR HGB CONC 31.3 g/dl (33.0-37.0); MEAN PLATELET VOLUME 10.7 fl (9.6-12.3); MONO # 0.9 10*3/uL (0.1-1.0); NEUT # 4.8 10*3/uL (2.3-7.9); NEUT % 64.6 % (47.0-73.0); PLATELET COUNT AUTOMATED 277 10*3/uL (130-400); RED BLOOD COUNT 2.73 10*6/uL (4.50-5.90); RED CELL DISTRI WIDTH 15.5 % (0-14.5); WHITE BLOOD COUNT 7.5 10*3/uL (4.8-10.8)
[2024-03-27 06:52] LABS: BUN 19 mg/dl (9-23); CHLORIDE 101 mmol/L (98-107); POTASSIUM 4.2 mmol/L (3.4-5.1)
[2024-03-27 08:00] VITALS: BP 123/67
[2024-03-27 12:00] VITALS: BP 121/72
[2024-03-27] MEDS ORDERED: METRONIDAZOLE 100 ML IV SCH (14:00)
[2024-03-27 16:00] VITALS: BP 107/63
[2024-03-27 20:00] VITALS: BP 113/45; BP 141/90
[2024-03-28] VITALS: BP 137/91
[2024-03-28] MEDS ORDERED: Vancomycin Hydrochloride 1,000 MG in SODIUM CHLORIDE 0.9% 250 ML IV SCH
[2024-03-28 08:25] VITALS: BP 140/78
[2024-03-28 09:40] LABS: ALKALINE PHOSPHATASE 175 U/L (46-116); BUN 18 mg/dl (9-23); CHLORIDE 104 mmol/L (98-107); POTASSIUM 3.9 mmol/L (3.4-5.1); SGPT/ALT 22 U/L (5-49); TOTAL PROTEIN 7.2 gm/dL (6.0-8.0)
[2024-03-28 09:47] LABS: BASO % 0.3 % (0.0-1.0); EOS # 0.5 10*3/uL (0.0-0.4); HEMATOCRIT 32.8 % (42.0-52.0); MEAN CELL VOLUME 103.5 fl (80.0-94.0); MEAN CORPUSCULAR HGB 33.4 pg (27.0-31.0); MEAN CORPUSCULAR HGB CONC 32.3 g/dl (33.0-37.0); MEAN PLATELET VOLUME 10.4 fl (9.6-12.3); MONO # 1.2 10*3/uL (0.1-1.0); MONO % 13.4 % (3.0-9.0); NEUT % 66.9 % (47.0-73.0); PLATELET COUNT AUTOMATED 277 10*3/uL (130-400); RED BLOOD COUNT 3.17 10*6/uL (4.50-5.90); RED CELL DISTRI WIDTH 15.1 % (0-14.5)
[2024-03-28] MEDS ORDERED: VANC1PIG IV (10:19)
[2024-03-28] MEDS ORDERED: ISO GENTAM120 MG/100 IV (10:19)
[2024-03-28] MEDS ORDERED: METRONIDAZOLE500 M1 PO (10:19)
[2024-03-28 12:16] VITALS: BP 149/83
== END 2024-03-28 14:50 | DRG 720 ==
LOC: ED 12:02 → EDHOLD 16:28 → 4E 16:28
PROVIDERS: Family Medicine; Internal Medicine; Student in an Organized Health Care Education/Training Program; ADMIT Internal Medicine; ATTEND Internal Medicine
PROC: 05H633Z Insertion of Infusion Device into Left Subclavian Vein, Percutaneous Approach (ICD-10-PCS; principal; 2024-03-20)
PROC: B547ZZA Ultrasonography of Left Subclavian Vein, Guidance (ICD-10-PCS; 2024-03-20)
DX: A41.9 Sepsis, unspecified organism (principal); T83.511A Infection and inflammatory reaction due to indwelling urethral catheter, initial encounter; J15.1 Pneumonia due to Pseudomonas; E43 Unspecified severe protein-calorie malnutrition; K81.0 Acute cholecystitis; G93.1 Anoxic brain damage, not elsewhere classified; J96.12 Chronic respiratory failure with hypercapnia; R65.20 Severe sepsis without septic shock; J96.11 Chronic respiratory failure with hypoxia; Y84.6 Urinary catheterization as the cause of abnormal reaction of the patient, or of later complication, without mention of misadventure at the time of the procedure; Y92.89 Other specified places as the place of occurrence of the external cause; B96.1 Klebsiella pneumoniae [K. pneumoniae] as the cause of diseases classified elsewhere; Z16.12 Extended spectrum beta lactamase (ESBL) resistance; I10 Essential (primary) hypertension; N30.90 Cystitis, unspecified without hematuria; G40.909 Epilepsy, unspecified, not intractable, without status epilepticus; D53.9 Nutritional anemia, unspecified; I25.10 Atherosclerotic heart disease of native coronary artery without angina pectoris; E87.6 Hypokalemia; E78.5 Hyperlipidemia, unspecified; Z88.0 Allergy status to penicillin; Z88.5 Allergy status to narcotic agent; Z91.013 Allergy to seafood; Z79.899 Other long term (current) drug therapy; Z95.5 Presence of coronary angioplasty implant and graft; Z82.49 Family history of ischemic heart disease and other diseases of the circulatory system; Z68.25 Body mass index [BMI] 25.0-25.9, adult

== ENCOUNTER 2024-04-01 00:17 | Emergency (ER) | payer OTHER ==
[~2024-04-01] VITALS: Ht 175.2 cm; Wt 83.9 kg
[~2024-04-01 00:17] MED LIST changes: +ARTIFICIAL TEAR1514 OU; +ISO GENTAM120 MG/100 IV; +LASIX20 MG PO; +LIPITOR20 MG PO; +METRONIDAZOLE500 M1 PO; +VALPROIC A500 MG/10 PO; +VANC1PIG IV; +[UNRECOGNIZED DRUG - OTHER] PO
== END 2024-04-01 03:36 | disposition home or self-care (01) ==
LOC: ED 00:17
DX: Z04.3 Encounter for examination and observation following other accident (principal); F17.200 Nicotine dependence, unspecified, uncomplicated; Z88.0 Allergy status to penicillin; Z88.5 Allergy status to narcotic agent; Z91.013 Allergy to seafood; Z79.899 Other long term (current) drug therapy; Z79.82 Long term (current) use of aspirin; Z95.5 Presence of coronary angioplasty implant and graft; W06.XXXA Fall from bed, initial encounter; Y93.89 Activity, other specified; Y92.128 Other place in nursing home as the place of occurrence of the external cause; Y99.8 Other external cause status

== ENCOUNTER 2024-05-29 05:24 | Emergency (ER) | payer OTHER ==
[~2024-05-29] VITALS: Wt 79.4 kg
[2024-05-29 06:01] LABS: BASO % 0.3 % (0.0-1.0); EOS # 0.5 10*3/uL (0.0-0.4); EOS % 4.8 % (1.0-4.0); HEMATOCRIT 32.5 % (42.0-52.0); MEAN CELL VOLUME 104.5 fl (80.0-94.0); MEAN CORPUSCULAR HGB 32.8 pg (27.0-31.0); MEAN CORPUSCULAR HGB CONC 31.4 g/dl (33.0-37.0); MEAN PLATELET VOLUME 11.1 fl (9.6-12.3); MONO # 1.1 10*3/uL (0.1-1.0); NEUT # 8.1 10*3/uL (2.3-7.9); NEUT % 76.5 % (47.0-73.0); PLATELET COUNT AUTOMATED 222 10*3/uL (130-400); RED BLOOD COUNT 3.11 10*6/uL (4.50-5.90); RED CELL DISTRI WIDTH 13.8 % (0-14.5); WHITE BLOOD COUNT 10.6 10*3/uL (4.8-10.8)
[2024-05-29 06:14] LABS: BUN 32 mg/dl (9-23); CHLORIDE 101 mmol/L (98-107)
[2024-05-29 06:40] LABS: BILIRUBIN Negative (Negative); BLOOD 3+ (Negative); CLARITY Cloudy (Clear); COLOR Red (Yellow); GLUCOSE Negative (Negative); KETONE Negative (Negative); LEUKO ESTERASE 2+ (Negative); NITRITE Negative (Negative)
[2024-05-29 07:08] LABS: RBC TNTC rbc/hpf (0-2); WBC 16-20 wbc/hpf (0-5)
[2024-05-29] MEDS ORDERED: MACROBID100 M1 PO (07:40)
== END 2024-05-29 08:00 ==
LOC: ED 05:24
PROVIDERS: Internal Medicine
DX: N39.0 Urinary tract infection, site not specified (principal); G91.2 (Idiopathic) normal pressure hydrocephalus; I25.2 Old myocardial infarction; G40.909 Epilepsy, unspecified, not intractable, without status epilepticus; Z88.0 Allergy status to penicillin; Z88.5 Allergy status to narcotic agent; Z91.013 Allergy to seafood; Z79.899 Other long term (current) drug therapy; Z79.82 Long term (current) use of aspirin; Z95.5 Presence of coronary angioplasty implant and graft; Z93.0 Tracheostomy status

== ENCOUNTER 2024-08-25 07:13 | Inpatient (IN) | payer OTHER ==
[~2024-08-25] VITALS: Ht 167.6 cm; Wt 80.3 kg
[~2024-08-25 07:13] MED LIST changes: +MACROBID100 M1 PO
[2024-08-25] MEDS ORDERED: SODIUM CHLORIDE 0.9% 1,000 ML IV ONE ×3 (07:20→08:40)
[2024-08-25 07:28] VITALS: BP 89/59
[2024-08-25 07:49] LABS: BASO # 0.0 10*3/uL (0.0-0.1); BASO % 0.1 % (0.0-1.0); EOS # 0.0 10*3/uL (0.0-0.4); EOS % 0.0 % (1.0-4.0); MEAN CELL VOLUME 100.0 fl (80.0-94.0); MEAN CORPUSCULAR HGB 32.5 pg (27.0-31.0); MEAN PLATELET VOLUME 11.6 fl (9.6-12.3); MONO # 1.4 10*3/uL (0.1-1.0); MONO % 12.0 % (3.0-9.0); NEUT # 9.1 10*3/uL (2.3-7.9); NEUT % 79.3 % (47.0-73.0); NUCLEATED RED BLOOD CELL 0.0 % (0.0-0.0); NUCLEATED RED BLOOD CELL 0.0 10*3/uL (0.0-0.0); PLATELET COUNT AUTOMATED 184 10*3/uL (130-400); RED CELL DISTRI WIDTH 16.1 % (0-14.5)
[2024-08-25] MEDS ORDERED: LOPRESSOR50 M1 PEG (07:53)
[2024-08-25 08:02] LABS: BUN 31 mg/dl (9-23)
[2024-08-25 09:27] VITALS: BP 133/88
[2024-08-25] MEDS ORDERED: BISACODYL 10 MG SUPP R PRN (10:20)
[2024-08-25] MEDS ORDERED: Ondansetron Hydrochloride 4 MG/2 ML VIAL IV PRN (10:20)
[2024-08-25] MEDS ORDERED: ACETAMINOPHEN 650 MG SUPP R PRN (10:20)
[2024-08-25 13:30] VITALS: BP 82/56
[2024-08-25] MEDS ORDERED: Albuterol Sulf/Ipratropium 3 ML VIAL NEB SCH (14:29)
[2024-08-25 16:00] VITALS: BP 103/59
[2024-08-25 16:01] LABS: BILIRUBIN Negative (Negative); BLOOD 3+ (Negative); CLARITY Cloudy (Clear); COLOR Yellow (Yellow); KETONE Negative (Negative); LEUKO ESTERASE 3+ (Negative); NITRITE Negative (Negative); PH 6.5 (4.5-8.0); SPECIFIC GRAVITY 1.020 (1.001-1.030); UROBILINOGEN 1.0 E.U./dl (0.0-1.0)
[2024-08-25 16:12] LABS: BACTERIA 2+; RBC 21-30 rbc/hpf (0-2); WBC TNTC wbc/hpf (0-5)
[2024-08-25] MEDS ORDERED: Vancomycin Hydrochloride 1,000 MG in SODIUM CHLORIDE 0.9% 250 ML IV SCH (19:00)
[2024-08-25 20:00] VITALS: BP 107/71
[2024-08-25] MEDS ORDERED: LEVETIRACETAM 250 MG TAB PO SCH (22:00)
[2024-08-25] MEDS ORDERED: Clopidogrel Hydrogen Sulfate 75 MG TAB PEG SCH (22:00)
[2024-08-25] MEDS ORDERED: VALPROIC ACID 250 MG/5 ML UDC PEG SCH (22:00)
[2024-08-25] MEDS ORDERED: Cefepime Hydrochloride 2 GM in SODIUM CHLORIDE 0.9% 50 ML IV SCH (22:00)
[2024-08-25] MEDS ORDERED: LEVETIRACETAM 500 MG/5 ML UDC PEG SCH (22:00)
[2024-08-26] VITALS: BP 104/61
[2024-08-26 04:00] VITALS: BP 116/74
[2024-08-26 05:25] LABS: BUN 29 mg/dl (9-23); SGPT/ALT 20 U/L (5-49); VALPROIC ACID (DEPAKENE) 54.4 ug/ml (50-100)
[2024-08-26 06:20] LABS: BASO # 0.0 10*3/uL (0.0-0.1); BASO % 0.4 % (0.0-1.0); EOS # 0.2 10*3/uL (0.0-0.4); EOS % 2.2 % (1.0-4.0); MEAN CELL VOLUME 102.2 fl (80.0-94.0); MEAN CORPUSCULAR HGB 32.3 pg (27.0-31.0); MEAN PLATELET VOLUME 11.9 fl (9.6-12.3); MONO # 1.2 10*3/uL (0.1-1.0); MONO % 15.4 % (3.0-9.0); NEUT # 4.9 10*3/uL (2.3-7.9); NEUT % 63.6 % (47.0-73.0); NUCLEATED RED BLOOD CELL 0.0 % (0.0-0.0); NUCLEATED RED BLOOD CELL 0.0 10*3/uL (0.0-0.0); PLATELET COUNT AUTOMATED 142 10*3/uL (130-400); RED CELL DISTRI WIDTH 16.5 % (0-14.5)
[2024-08-26 08:00] VITALS: BP 112/56
[2024-08-26] MEDS ORDERED: LEVETIRACETAM 500 MG/5 ML UDC PEG SCH (10:00)
[2024-08-26] MEDS ORDERED: ATORVASTATIN CALCIUM 20 MG TAB PO SCH (10:00)
[2024-08-26] MEDS ORDERED: LEVETIRACETAM 500 MG TAB PO SCH (10:00)
[2024-08-26] MEDS ORDERED: ASPIRIN, CHEWABLE 81 MG TAB PEG SCH (10:00)
[2024-08-26] MEDS ORDERED: LEVOFLOXACIN 150 ML IV SCH (11:45)
[2024-08-26 12:00] VITALS: BP 117/61
[2024-08-26] MEDS ORDERED: SODIUM CHLORIDE 0.9% 500 ML IV ONE (13:50)
[2024-08-26] MEDS ORDERED: DIGOXIN 500 MCG/2 ML AMP IV ONE (13:55)
[2024-08-26 16:00] VITALS: BP 87/57
[2024-08-26 20:00] VITALS: BP 93/52
[2024-08-27] VITALS: BP 120/64
[2024-08-27 04:00] VITALS: BP 120/58
[2024-08-27 06:02] LABS: BASO # 0.0 10*3/uL (0.0-0.1); BASO % 0.3 % (0.0-1.0); EOS # 0.2 10*3/uL (0.0-0.4); EOS % 3.3 % (1.0-4.0); MEAN CELL VOLUME 102.3 fl (80.0-94.0); MEAN CORPUSCULAR HGB 32.7 pg (27.0-31.0); MEAN PLATELET VOLUME 11.9 fl (9.6-12.3); MONO # 0.9 10*3/uL (0.1-1.0); MONO % 13.9 % (3.0-9.0); NEUT # 4.5 10*3/uL (2.3-7.9); NEUT % 66.7 % (47.0-73.0); NUCLEATED RED BLOOD CELL 0.0 % (0.0-0.0); NUCLEATED RED BLOOD CELL 0.0 10*3/uL (0.0-0.0); PLATELET COUNT AUTOMATED 142 10*3/uL (130-400); RED CELL DISTRI WIDTH 16.7 % (0-14.5)
[2024-08-27 06:12] LABS: BUN 23 mg/dl (9-23); SGPT/ALT 17 U/L (5-49)
[2024-08-27 08:00] VITALS: BP 118/67
[2024-08-27] MEDS ORDERED: Lactobacillus Acidophilus/LA 1 TAB TAB PO SCH (10:00)
[2024-08-27] MEDS ORDERED: AZITHROMYCIN 250 ML IV SCH (10:00)
[2024-08-27] MEDS ORDERED: ACETAMINOPHEN 325 MG/10.15 ML UDC PEG PRN (11:35)
[2024-08-27 12:00] VITALS: BP 127/76
[2024-08-27 16:00] VITALS: BP 131/74
[2024-08-27 20:00] VITALS: BP 109/78
[2024-08-28] VITALS: BP 132/92
[2024-08-28 04:00] VITALS: BP 123/82
[2024-08-28 07:57] VITALS: BP 120/59
[2024-08-28 09:21] LABS: BASO # 0.0 10*3/uL (0.0-0.1); BASO % 0.3 % (0.0-1.0); EOS # 0.4 10*3/uL (0.0-0.4); EOS % 4.8 % (1.0-4.0); MEAN CELL VOLUME 105.2 fl (80.0-94.0); MEAN CORPUSCULAR HGB 33.1 pg (27.0-31.0); MEAN PLATELET VOLUME 12.0 fl (9.6-12.3); MONO # 1.2 10*3/uL (0.1-1.0); MONO % 15.6 % (3.0-9.0); NEUT # 4.3 10*3/uL (2.3-7.9); NEUT % 57.8 % (47.0-73.0); NUCLEATED RED BLOOD CELL 0.0 % (0.0-0.0); NUCLEATED RED BLOOD CELL 0.0 10*3/uL (0.0-0.0); PLATELET COUNT AUTOMATED 146 10*3/uL (130-400); RED CELL DISTRI WIDTH 17.0 % (0-14.5)
[2024-08-28 11:58] VITALS: BP 110/62
[2024-08-28] MEDS ORDERED: VALPROIC ACID 250 MG/5 ML UDC PEG SCH (14:00)
[2024-08-28 16:00] VITALS: BP 126/85
[2024-08-28 20:00] VITALS: BP 133/80
[2024-08-29] VITALS: BP 125/71
[2024-08-29 04:41] LABS: BASO # 0.0 10*3/uL (0.0-0.1); BASO % 0.5 % (0.0-1.0); EOS # 0.6 10*3/uL (0.0-0.4); EOS % 9.2 % (1.0-4.0); MEAN CORPUSCULAR HGB 32.2 pg (27.0-31.0); MEAN PLATELET VOLUME 11.0 fl (9.6-12.3); MONO # 0.8 10*3/uL (0.1-1.0); MONO % 12.4 % (3.0-9.0); NEUT # 3.8 10*3/uL (2.3-7.9); NEUT % 57.4 % (47.0-73.0); NUCLEATED RED BLOOD CELL 0.0 % (0.0-0.0); NUCLEATED RED BLOOD CELL 0.0 10*3/uL (0.0-0.0); PLATELET COUNT AUTOMATED 161 10*3/uL (130-400); RED CELL DISTRI WIDTH 16.8 % (0-14.5)
[2024-08-29 05:12] LABS: BUN 17 mg/dl (9-23); SGPT/ALT 22 U/L (5-49)
[2024-08-29 06:19] LABS: MEAN CELL VOLUME 101.1 fl (80.0-94.0)
[2024-08-29 08:00] VITALS: BP 175/100
[2024-08-29] MEDS ORDERED: Albuterol Sulf/Ipratropium 3 ML VIAL NEB ONE (10:15)
[2024-08-29] MEDS ORDERED: Midazolam Hydrochloride 2 MG/2 ML VIAL ONE (10:34)
[2024-08-29 10:40] LABS: ACT PARTIAL THROMBO TIME 27.6 SECONDS (20.0-32.1)
[2024-08-29 12:00] VITALS: BP 151/92
[2024-08-29] MEDS ORDERED: FUROSEMIDE 40 MG/4 ML VIAL IV ONE (13:05)
[2024-08-29 13:13] LABS: BF LYMPHOCYTES 3 %; BF NEUTROPHILS 97 %
[2024-08-29 16:00] VITALS: BP 137/96
[2024-08-29 20:00] VITALS: BP 160/88
[2024-08-30] VITALS: BP 150/93
[2024-08-30 04:00] VITALS: BP 149/96
[2024-08-30 06:05] LABS: BASO # 0.0 10*3/uL (0.0-0.1); BASO % 0.2 % (0.0-1.0); EOS # 0.4 10*3/uL (0.0-0.4); EOS % 3.3 % (1.0-4.0); MEAN CELL VOLUME 99.3 fl (80.0-94.0); MEAN CORPUSCULAR HGB 33.0 pg (27.0-31.0); MEAN PLATELET VOLUME 11.2 fl (9.6-12.3); MONO # 1.4 10*3/uL (0.1-1.0); MONO % 10.7 % (3.0-9.0); NEUT # 9.1 10*3/uL (2.3-7.9); NEUT % 69.0 % (47.0-73.0); NUCLEATED RED BLOOD CELL 0.0 % (0.0-0.0); NUCLEATED RED BLOOD CELL 0.0 10*3/uL (0.0-0.0); RED CELL DISTRI WIDTH 17.2 % (0-14.5)
[2024-08-30 06:18] LABS: BUN 20 mg/dl (9-23); SGPT/ALT 22 U/L (5-49)
[2024-08-30 06:44] LABS: PLATELET COUNT AUTOMATED 216 10*3/uL (130-400)
[2024-08-30 08:00] VITALS: BP 154/89
[2024-08-30] MEDS ORDERED: FUROSEMIDE 40 MG/4 ML VIAL IV ONE (10:35)
[2024-08-30 11:07] LABS: ACID FAST SPEC PROCESSING Concentration (.)
[2024-08-30 12:00] VITALS: BP 113/46
[2024-08-30] MEDS ORDERED: FOAM BANDAGE HEEL T ONE (15:00)
[2024-08-30] MEDS ORDERED: FOAM BANDAGE 1 EACH BANDAGE T ONE (15:00)
[2024-08-30 16:00] VITALS: BP 86/55
[2024-08-30 20:00] VITALS: BP 87/56
[2024-08-31] VITALS (8 sets, daily range): BP systolic 87–128; BP diastolic 49–85
[2024-08-31 05:17] LABS: BUN 23 mg/dl (9-23); SGPT/ALT 15 U/L (5-49)
[2024-08-31 06:08] LABS: BASO # 0.0 10*3/uL (0.0-0.1); BASO % 0.3 % (0.0-1.0); EOS # 0.6 10*3/uL (0.0-0.4); EOS % 6.0 % (1.0-4.0); MEAN CELL VOLUME 100.4 fl (80.0-94.0); MEAN CORPUSCULAR HGB 32.4 pg (27.0-31.0); MEAN PLATELET VOLUME 11.1 fl (9.6-12.3); MONO # 1.3 10*3/uL (0.1-1.0); MONO % 14.0 % (3.0-9.0); NEUT # 5.2 10*3/uL (2.3-7.9); NEUT % 57.6 % (47.0-73.0); NUCLEATED RED BLOOD CELL 0.0 % (0.0-0.0); NUCLEATED RED BLOOD CELL 0.0 10*3/uL (0.0-0.0); PLATELET COUNT AUTOMATED 193 10*3/uL (130-400); RED CELL DISTRI WIDTH 17.7 % (0-14.5)
[2024-08-31] MEDS ORDERED: FOAM BANDAGE 1 EACH BANDAGE T ONE (11:52)
[2024-08-31] MEDS ORDERED: Midodrine Hydrochloride 5 MG TAB PO SCH (16:40)
[2024-09-01] VITALS: BP 135/84
[2024-09-01 04:00] VITALS: BP 149/78
[2024-09-01 05:22] LABS: BUN 26 mg/dl (9-23); SGPT/ALT 19 U/L (5-49)
[2024-09-01 06:35] LABS: BASO # 0.0 10*3/uL (0.0-0.1); BASO % 0.4 % (0.0-1.0); EOS # 0.8 10*3/uL (0.0-0.4); EOS % 9.3 % (1.0-4.0); MEAN CELL VOLUME 101.6 fl (80.0-94.0); MEAN CORPUSCULAR HGB 32.1 pg (27.0-31.0); MEAN PLATELET VOLUME 11.1 fl (9.6-12.3); MONO # 1.1 10*3/uL (0.1-1.0); MONO % 13.6 % (3.0-9.0); NEUT # 5.0 10*3/uL (2.3-7.9); NEUT % 60.7 % (47.0-73.0); NUCLEATED RED BLOOD CELL 0.0 % (0.0-0.0); NUCLEATED RED BLOOD CELL 0.0 10*3/uL (0.0-0.0); PLATELET COUNT AUTOMATED 228 10*3/uL (130-400); RED CELL DISTRI WIDTH 17.5 % (0-14.5)
[2024-09-01 08:00] VITALS: BP 118/71
[2024-09-01 12:00] VITALS: BP 128/88
[2024-09-01 16:00] VITALS: BP 139/84
[2024-09-01 20:00] VITALS: BP 124/68
[2024-09-02] VITALS: BP 109/70
[2024-09-02] MEDS ORDERED: PREMIERPRO RX ME1 GM IV (00:15)
[2024-09-02 04:00] VITALS: BP 103/58
[2024-09-02 05:02] LABS: BUN 24 mg/dl (9-23); SGPT/ALT 15 U/L (5-49)
[2024-09-02 06:31] LABS: BASO # 0.0 10*3/uL (0.0-0.1); BASO % 0.4 % (0.0-1.0); EOS # 0.7 10*3/uL (0.0-0.4); EOS % 10.0 % (1.0-4.0); MEAN CELL VOLUME 102.1 fl (80.0-94.0); MEAN CORPUSCULAR HGB 32.9 pg (27.0-31.0); MEAN PLATELET VOLUME 10.7 fl (9.6-12.3); MONO # 0.9 10*3/uL (0.1-1.0); MONO % 13.0 % (3.0-9.0); NEUT # 4.2 10*3/uL (2.3-7.9); NEUT % 58.9 % (47.0-73.0); NUCLEATED RED BLOOD CELL 0.0 % (0.0-0.0); NUCLEATED RED BLOOD CELL 0.0 10*3/uL (0.0-0.0); PLATELET COUNT AUTOMATED 237 10*3/uL (130-400); RED CELL DISTRI WIDTH 17.5 % (0-14.5)
[2024-09-02 08:00] VITALS: BP 117/54
[2024-09-02 12:00] VITALS: BP 117/75
[2024-09-02 16:00] VITALS: BP 123/73
[2024-09-02 20:00] VITALS: BP 121/71
[2024-09-03] VITALS: BP 136/81
[2024-09-03 04:00] VITALS: BP 106/69
[2024-09-03 05:15] LABS: BUN 25 mg/dl (9-23); SGPT/ALT 14 U/L (5-49)
[2024-09-03 06:22] LABS: BASO # 0.0 10*3/uL (0.0-0.1); BASO % 0.4 % (0.0-1.0); EOS # 0.8 10*3/uL (0.0-0.4); EOS % 9.8 % (1.0-4.0); MEAN CELL VOLUME 102.9 fl (80.0-94.0); MEAN CORPUSCULAR HGB 32.7 pg (27.0-31.0); MEAN PLATELET VOLUME 10.8 fl (9.6-12.3); MONO # 1.0 10*3/uL (0.1-1.0); MONO % 12.1 % (3.0-9.0); NEUT # 4.8 10*3/uL (2.3-7.9); NEUT % 59.4 % (47.0-73.0); NUCLEATED RED BLOOD CELL 0.0 % (0.0-0.0); NUCLEATED RED BLOOD CELL 0.0 10*3/uL (0.0-0.0); PLATELET COUNT AUTOMATED 268 10*3/uL (130-400); RED CELL DISTRI WIDTH 17.3 % (0-14.5)
[2024-09-03 08:00] VITALS: BP 116/66
[2024-09-03 12:00] VITALS: BP 139/82
[2024-09-03 16:00] VITALS: BP 149/83
[2024-09-03 20:00] VITALS: BP 138/90
[2024-09-04] VITALS: BP 154/92
[2024-09-04 04:00] VITALS: BP 127/73
[2024-09-04 05:42] LABS: BUN 24 mg/dl (9-23); SGPT/ALT 15 U/L (5-49)
[2024-09-04 06:05] LABS: BASO # 0.0 10*3/uL (0.0-0.1); BASO % 0.2 % (0.0-1.0); EOS # 0.7 10*3/uL (0.0-0.4); EOS % 11.7 % (1.0-4.0); MEAN CELL VOLUME 103.6 fl (80.0-94.0); MEAN CORPUSCULAR HGB 32.1 pg (27.0-31.0); MEAN PLATELET VOLUME 10.9 fl (9.6-12.3); MONO # 0.7 10*3/uL (0.1-1.0); MONO % 12.0 % (3.0-9.0); NEUT # 3.2 10*3/uL (2.3-7.9); NEUT % 52.1 % (47.0-73.0); NUCLEATED RED BLOOD CELL 0.0 % (0.0-0.0); NUCLEATED RED BLOOD CELL 0.0 10*3/uL (0.0-0.0); PLATELET COUNT AUTOMATED 298 10*3/uL (130-400); RED CELL DISTRI WIDTH 17.4 % (0-14.5)
[2024-09-04 08:00] VITALS: BP 137/80
[2024-09-04] MEDS ORDERED: FOAM BANDAGE HEEL T ONE (10:47)
[2024-09-04] MEDS ORDERED: FOAM BANDAGE 5X5 T ONE (10:47)
[2024-09-04] MEDS ORDERED: FOAM BANDAGE 1 EACH BANDAGE T ONE (10:47)
[2024-09-04] MEDS ORDERED: DEPAKENE S250 MG/5 M PEG (11:59)
[2024-09-04] MEDS ORDERED: MIDODRINE HCL5 M1 PO (11:59)
[2024-09-04] MEDS ORDERED: LOPRESSOR25 MG PEG (11:59)
[2024-09-04] MEDS ORDERED: ENOXAPARIN80 MG/0.2 SC (11:59)
[2024-09-04] MEDS ORDERED: LACTINEX 0.2 MG1 TAB PO (11:59)
[2024-09-04 12:00] VITALS: BP 117/76
== END 2024-09-04 14:37 | DRG 720 ==
LOC: ED 07:13 → ICCU 09:12 → EDHOLD 09:12 → ICCU 11:51
PROVIDERS: Emergency Medicine; Internal Medicine Critical Care Medicine; Student in an Organized Health Care Education/Training Program; ADMIT Internal Medicine; ATTEND Internal Medicine
PROC: 02HV33Z Insertion of Infusion Device into Superior Vena Cava, Percutaneous Approach (ICD-10-PCS; 2024-08-25)
PROC: 5A1955Z Respiratory Ventilation, Greater than 96 Consecutive Hours (ICD-10-PCS; principal; 2024-08-26)
PROC: 0BC98ZZ Extirpation of Matter from Lingula Bronchus, Via Natural or Artificial Opening Endoscopic (ICD-10-PCS; 2024-08-29)
PROC: 0BC48ZZ Extirpation of Matter from Right Upper Lobe Bronchus, Via Natural or Artificial Opening Endoscopic (ICD-10-PCS; 2024-08-29)
PROC: 0BC88ZZ Extirpation of Matter from Left Upper Lobe Bronchus, Via Natural or Artificial Opening Endoscopic (ICD-10-PCS; 2024-08-29)
PROC: 0BC58ZZ Extirpation of Matter from Right Middle Lobe Bronchus, Via Natural or Artificial Opening Endoscopic (ICD-10-PCS; 2024-08-29)
PROC: 0BC38ZZ Extirpation of Matter from Right Main Bronchus, Via Natural or Artificial Opening Endoscopic (ICD-10-PCS; 2024-08-29)
PROC: 0BC78ZZ Extirpation of Matter from Left Main Bronchus, Via Natural or Artificial Opening Endoscopic (ICD-10-PCS; 2024-08-29)
PROC: 0BC68ZZ Extirpation of Matter from Right Lower Lobe Bronchus, Via Natural or Artificial Opening Endoscopic (ICD-10-PCS; 2024-08-29)
PROC: 0BCB8ZZ Extirpation of Matter from Left Lower Lobe Bronchus, Via Natural or Artificial Opening Endoscopic (ICD-10-PCS; 2024-08-29)
PROC: 0BC18ZZ Extirpation of Matter from Trachea, Via Natural or Artificial Opening Endoscopic (ICD-10-PCS; 2024-08-29)
PROC: 05H933Z Insertion of Infusion Device into Right Brachial Vein, Percutaneous Approach (ICD-10-PCS; 2024-09-03)
PROC: B548ZZA Ultrasonography of Superior Vena Cava, Guidance (ICD-10-PCS; 2024-09-03)
DX: A41.9 Sepsis, unspecified organism (principal); N39.0 Urinary tract infection, site not specified; J96.21 Acute and chronic respiratory failure with hypoxia; E43 Unspecified severe protein-calorie malnutrition; I70.0 Atherosclerosis of aorta; N32.89 Other specified disorders of bladder; R53.2 Functional quadriplegia; M62.58 Muscle wasting and atrophy, not elsewhere classified, other site; R40.3 Persistent vegetative state; Z93.0 Tracheostomy status; I24.89 Other forms of acute ischemic heart disease; J15.69 Pneumonia due to other Gram-negative bacteria; D53.9 Nutritional anemia, unspecified; E87.20 Acidosis, unspecified; E78.2 Mixed hyperlipidemia; I10 Essential (primary) hypertension; I25.10 Atherosclerotic heart disease of native coronary artery without angina pectoris; I46.9 Cardiac arrest, cause unspecified; G93.1 Anoxic brain damage, not elsewhere classified; N62 Hypertrophy of breast; N20.0 Calculus of kidney; K40.90 Unilateral inguinal hernia, without obstruction or gangrene, not specified as recurrent; Z66 Do not resuscitate; R65.20 Severe sepsis without septic shock; K81.0 Acute cholecystitis; G40.909 Epilepsy, unspecified, not intractable, without status epilepticus; I71.40 Abdominal aortic aneurysm, without rupture, unspecified; I48.91 Unspecified atrial fibrillation; Z88.0 Allergy status to penicillin; Z88.5 Allergy status to narcotic agent; Z95.5 Presence of coronary angioplasty implant and graft; Z91.013 Allergy to seafood; Z82.49 Family history of ischemic heart disease and other diseases of the circulatory system; Z83.3 Family history of diabetes mellitus; Z79.82 Long term (current) use of aspirin; Z79.899 Other long term (current) drug therapy; Z68.28 Body mass index [BMI] 28.0-28.9, adult